=== PATIENT | male | born 1970 | race Caucasian/White ===

== ENCOUNTER 2017-12-05 19:40 | Inpatient (IN) | payer BC ==
[~2017-12-05 19:40] MED LIST: ISOVUE-370 76%-LOCM 1 ML ONE
[2017-12-05 19:55] LABS: #Eosinphils 0.2 thou/uL (0.0-0.7); #Lymphocytes 1.9 thou/uL (1.20-3.40); #Monocytes 0.4 thou/uL (0.11-0.59); #Neutrophils 5.5 thou/uL (1.40-6.50); %Basophils 0.5 % (0.0-1.0); %Eosinophils 2.3 % (0.0-10.0); %Lymphocytes 23.4 % (21.0-51.0); %Monocytes 5.5 % (0.0-10.0); %Neutrophils 68.3 % (42.0-75.0); Hemoglobin 17.1 g/dL (14.0-18.0); Mean Corpuscular HGB CONC 34.7 g/dL (32.0-36.0); Mean Corpuscular Hemoglobin 31.2 pg (27.0-31.0); Mean Platelet Volume 7.4 fL (7.4-10.4); Platelet Count 223 thou/uL (130-400); RBC Distribution Width 11.5 % (11.5-14.5); Red Blood Cell (RBC) Count 5.49 mill/uL (4.70-6.10)
[2017-12-05] MEDS ORDERED: HYDROmorphone 0.5 MG/0.5 ML SYRINGE ONE (19:55)
[2017-12-05] MEDS ORDERED: Ondansetron HCl/PF 4 MG/2 ML Vial ONE (20:01)
[2017-12-05 20:02] LABS: Prothrombin Time 13.7 SEC (12.0-14.7)
[2017-12-05 20:08] LABS: ALT (SGPT) 53 U/L (8-55); AST (SGOT) 47 U/L (5-34); Albumin 4.2 g/dL (3.5-5.0); Alkaline Phosphatase 45 U/L (40-150); Anion Gap 13 mmol/L (10-20); BUN (Urea Nitrogen) 20 mg/dL (8.9-20.6); Bilirubin, Total 0.5 mg/dL (0.2-1.2); Calc. Creatinine Clearance 0 mL/min (70-130); Calcium 9.2 mg/dL (7.8-10.44); Carbon Dioxide 22 mmol/L (22-29); Chloride 107 mmol/L (98-107); Estimated GFR-MDRD 60; Globulin 2.9 g/dL (2.4-3.5); Glucose 119 mg/dL (70-105); Potassium 4.3 mmol/L (3.5-5.1); Protein, Total 7.1 g/dL (6.0-8.3); Sodium 138 mmol/L (136-145)
[2017-12-05 20:11] LABS: PTT 22.6 SEC (22.9-36.1)
[2017-12-05] MEDS ORDERED: Dextrose 50% Abboject 50 ML SYRINGE SLOW IVP PRN (20:20)
[2017-12-05] MEDS ORDERED: hydrALAZINE 20 MG/ML VIAL SLOW IVP PRN (20:20)
[2017-12-05] MEDS ORDERED: Ondansetron ODT 4 MG TAB PO PRN (20:20)
[2017-12-05] MEDS ORDERED: Dextrose 5% in Water 1,000 ML IV PRN (20:20)
[2017-12-05] MEDS ORDERED: HYDROcodone/Acetaminophen 10/325 mg Tablet PO PRN (20:25)
[2017-12-05] MEDS ORDERED: Acetaminophen 500 MG TAB PO SCH (20:30)
[2017-12-05] MEDS ORDERED: Ibuprofen 800 MG TAB PO SCH (20:30)
[2017-12-05] MEDS ORDERED: Rib Fracture Protocol PO SCH (20:30)
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
[2017-12-05] MEDS ORDERED: Adacel (T-DAP) 0.5 ML VIAL ONE (20:44)
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
[2017-12-05] MEDS: HYDROcodone/Acetaminophen 10/325 mg Tablet PO SCH (21:59)
[2017-12-05] MEDS: Cyclobenzaprine 10 MG TAB PO PRN (22:00)
[2017-12-05] MEDS: Famotidine 20 MG TAB PO SCH (22:00)
[2017-12-05] MEDS: Gabapentin 300 MG CAP PO SCH (22:01)
[2017-12-05 22:24] VITALS: BMI 33.9
[2017-12-05] MEDS: Ondansetron HCl/PF 4 MG/2 ML Vial IVP PRN (23:38)
[2017-12-05] MEDS: Ketorolac Tromethamine 30 MG/ML VIAL IVP SCH (23:38)
[2017-12-06] MEDS: HYDROcodone/Acetaminophen 10/325 mg Tablet PO SCH ×4 (01:25→12:54)
[2017-12-06] MEDS: Ketorolac Tromethamine 30 MG/ML VIAL IVP SCH (05:33)
[2017-12-06 05:38] LABS: #Eosinphils 0.2 thou/uL (0.0-0.7); #Lymphocytes 1.7 thou/uL (1.20-3.40); #Monocytes 0.6 thou/uL (0.11-0.59); %Basophils 0.5 % (0.0-1.0); %Eosinophils 2.1 % (0.0-10.0); %Lymphocytes 23.2 % (21.0-51.0); %Monocytes 7.7 % (0.0-10.0); %Neutrophils 66.5 % (42.0-75.0); Hemoglobin 15.5 g/dL (14.0-18.0); Mean Corpuscular HGB CONC 34.9 g/dL (32.0-36.0); Mean Corpuscular Hemoglobin 31.4 pg (27.0-31.0); Mean Platelet Volume 7.2 fL (7.4-10.4); Platelet Count 191 thou/uL (130-400); RBC Distribution Width 11.5 % (11.5-14.5); Red Blood Cell (RBC) Count 4.93 mill/uL (4.70-6.10); White Blood Cell (WBC) Count 7.5 thou/uL (4.8-10.8)
[2017-12-06 05:50] LABS: Anion Gap 10 mmol/L (10-20); BUN (Urea Nitrogen) 17 mg/dL (8.9-20.6); Calc. Creatinine Clearance 180 mL/min (70-130); Calcium 8.6 mg/dL (7.8-10.44); Carbon Dioxide 27 mmol/L (22-29); Chloride 105 mmol/L (98-107); Estimated GFR-MDRD Greater than 90; Glucose 106 mg/dL (70-105); Magnesium 2.3 mg/dL (1.6-2.6); Phosphorus 3.2 mg/dL (2.3-4.7); Potassium 3.5 mmol/L (3.5-5.1); Sodium 138 mmol/L (136-145)
[2017-12-06] MEDS: Ondansetron HCl/PF 4 MG/2 ML Vial IVP PRN ×2 (05:55→16:15)
--- NOTE | 2017-12-06 08:28 | RAD ---
PORTABLE CHEST: Date: 12/06/17 HISTORY: Rib fractures. Shortness of breath. COMPARISON: 12/05/17. FINDINGS: Bilateral rib fractures have been previously described. Lungs appear clear of infiltrate. No pneumoth orax. No significant effusion. Heart is upper normal size with mild vascular engorgement. IMPRESSION: No acute interval change apparent. POS: [facility]
[2017-12-06] MEDS: AMPHETAMINE PO SCH (09:30)
[2017-12-06] MEDS: Gabapentin 300 MG CAP PO SCH ×3 (09:30→20:03)
[2017-12-06] MEDS: Famotidine 20 MG TAB PO SCH ×2 (09:30→20:03)
[2017-12-06] MEDS: DEXTROAMPHETAMINE PO SCH (09:30)
[2017-12-06] MEDS ORDERED: Aspirin/APAP/Caffeine Tab (Excedrin Migraine) PO PRN ×2 (09:34→11:03)
[2017-12-06] MEDS: traMADol HCl 50 MG TAB PO SCH ×3 (10:23→22:04)
[2017-12-06] MEDS ORDERED: Enoxaparin Sodium 30 MG/0.3 ML SYRINGE SC SCH (11:00)
[2017-12-06] MEDS: Ibuprofen 800 MG TAB PO SCH ×2 (12:53→20:03)
[2017-12-06] MEDS: Scopolamine 1.5 mg/72 hour Patch TD SCH (16:35)
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
[2017-12-06] MEDS: Cyclobenzaprine 10 MG TAB PO PRN (17:51)
[2017-12-06] MEDS: Enoxaparin Sodium 30 MG/0.3 ML SYRINGE SC SCH (20:04)
[2017-12-07] MEDS: traMADol HCl 50 MG TAB PO SCH ×2 (03:53→08:28)
[2017-12-07] MEDS: Ibuprofen 800 MG TAB PO SCH ×3 (03:53→20:43)
[2017-12-07] MEDS: Enoxaparin Sodium 30 MG/0.3 ML SYRINGE SC SCH ×2 (08:27→20:44)
[2017-12-07] MEDS: Gabapentin 300 MG CAP PO SCH ×3 (08:28→20:43)
[2017-12-07] MEDS: Famotidine 20 MG TAB PO SCH ×2 (08:28→20:43)
[2017-12-07] MEDS: AMPHETAMINE PO SCH (08:29)
[2017-12-07] MEDS: DEXTROAMPHETAMINE PO SCH (08:29)
--- NOTE | 2017-12-07 08:31 | RAD ---
PORTABLE CHEST: History: Follow up of rib fractures. Comparison: 12-06-17 FINDINGS: Heart size is within normal limits. Right sided rib fractures are again identified. I do not apprecia te any signs of a pneumothorax. There is some atelectatic changes seen in the lung bases. IMPRESSION: Multiple right sided rib fractures. No signs of pneumothorax. POS: [facility]
[2017-12-07] MEDS: Cyclobenzaprine 10 MG TAB PO SCH ×2 (09:50→18:29)
[2017-12-07] MEDS: Docusate 100 MG CAP PO SCH ×2 (09:50→20:43)
[2017-12-07] MEDS: Polyethylene Glycol 3350 17 GM Packet PO SCH (09:50)
[2017-12-07] MEDS: HYDROcodone/Acetaminophen 10/325 mg Tablet PO SCH ×4 (09:51→20:43)
--- NOTE | 2017-12-07 13:11 | PRG-2 ---
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 Th e patient reports he is still in considerable pain due to his rib fractures, particularly with inspir ation. He also notes muscle spasms in his chest wall today. The patient had a headache early this m orning in which he received Excedrin, which helped. The patient has been able to ambulate to the [facility] to shower and around the room. He has not attempted walking the halls and Physical Therapy was unable to work with him yesterday. OBJECTIVE: VITAL SIGNS: Temperature 97.9, pulse 80, respirations 12, 95% on room air, 107/22 blood pressure. GENERAL: Well-nourished, well-developed male, lying in bed. HEENT: Atraumatic, normocephalic. LUNGS: Clear to auscultation bilaterally, no increased work of breathing, painful deep inspiration. 2000 mL on incentive spirometry. HEART: Regular rate and rhythm, no murmur. ABDOMEN: Soft, nontender, nondistended. Bowel sounds present. MUSCULOSKELETAL: Moves all extremities well. Minor abrasion on right knee/thigh. NEUROLOGIC: No focal deficits. ASSESSMENT: 1. Status post blunt force trauma injury from bull. 2. Multiple bilateral rib fractures. 3. Acute traumatic pain, partially controlled. 4. History of attention deficit hyperactivity disorder. PLAN: The patient is encouraged to continue using incentive spirometry and was counseled on the impo rtance of it. The patient is to work with physical therapy today and to ambulate as much as tolerate d. We will work towards better pain control today. Medications have been altered and we will reassess later this afternoon. Bacitracin for right leg ab rasion. Ordered nebs. Dulcolax for constipation ordered. The patient was seen and examined by Dr. Boateng who agrees with the above plan.
[2017-12-07] MEDS: Bacitracin Zinc 1 Packet TOP SCH ×2 (15:13→20:44)
[2017-12-08] MEDS: HYDROcodone/Acetaminophen 10/325 mg Tablet PO SCH ×3 (01:45→09:23)
[2017-12-08] MEDS: Cyclobenzaprine 10 MG TAB PO SCH ×3 (01:45→17:51)
[2017-12-08] MEDS: Ibuprofen 800 MG TAB PO SCH ×3 (05:24→20:11)
[2017-12-08] MEDS: Polyethylene Glycol 3350 17 GM Packet PO SCH (09:22)
[2017-12-08] MEDS: Bacitracin Zinc 1 Packet TOP SCH ×3 (09:22→20:12)
[2017-12-08] MEDS: Gabapentin 300 MG CAP PO SCH ×3 (09:22→20:11)
[2017-12-08] MEDS: Docusate 100 MG CAP PO SCH ×2 (09:23→20:11)
[2017-12-08] MEDS: Famotidine 20 MG TAB PO SCH ×2 (09:23→20:11)
[2017-12-08] MEDS: Enoxaparin Sodium 30 MG/0.3 ML SYRINGE SC SCH ×2 (09:24→20:12)
[2017-12-08] MEDS: DEXTROAMPHETAMINE PO SCH (09:29)
[2017-12-08] MEDS: AMPHETAMINE PO SCH (09:29)
[2017-12-08] MEDS: Bisacodyl 10 MG SUPP PR SCH (10:47)
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
[2017-12-08] MEDS ORDERED: traMADol HCl 50 MG TAB PO PRN (11:53)
[2017-12-08] MEDS: traMADol HCl 50 MG TAB PO SCH ×2 (17:51→22:16)
[2017-12-08] MEDS: HYDROcodone/Acetaminophen 10/325 mg Tablet PO PRN (17:55)
[2017-12-08] MEDS ORDERED: Fleet Enema 133 ML BOT PR SCH (18:30)
[2017-12-08] MEDS: Ondansetron HCl/PF 4 MG/2 ML Vial IVP PRN (22:18)
[2017-12-09] MEDS ORDERED: Calcium Carbonate 500 MG ChewTAB PO PRN (01:50)
[2017-12-09] MEDS: Cyclobenzaprine 10 MG TAB PO SCH ×3 (02:00→18:35)
[2017-12-09] MEDS: traMADol HCl 50 MG TAB PO SCH ×4 (03:28→21:26)
[2017-12-09] MEDS: Ondansetron HCl/PF 4 MG/2 ML Vial IVP PRN ×2 (04:01→10:28)
[2017-12-09] MEDS: Ibuprofen 800 MG TAB PO SCH (04:12)
[2017-12-09] MEDS ORDERED: Lidocaine 2% Jelly 5 ML TUBE TOP SCH (05:15)
[2017-12-09] MEDS ORDERED: Benzocaine 20% Spray 60 ML CAN FS SCH (05:15)
[2017-12-09] MEDS ORDERED: Ketorolac Tromethamine 30 MG/ML VIAL ONE (05:59)
[2017-12-09] MEDS ORDERED: Ketorolac Tromethamine 30 MG/ML VIAL IVP SCH (06:15)
[2017-12-09] MEDS: Sodium Chloride 0.9% 1,000 ML IV SCH ×3 (06:51→18:36)
[2017-12-09 07:26] LABS: #Eosinphils 0.1 thou/uL (0.0-0.7); #Lymphocytes 0.8 thou/uL (1.20-3.40); #Monocytes 0.6 thou/uL (0.11-0.59); %Basophils 0.5 % (0.0-1.0); %Eosinophils 1.2 % (0.0-10.0); %Lymphocytes 10.5 % (21.0-51.0); %Neutrophils 79.9 % (42.0-75.0); Hemoglobin 17.9 g/dL (14.0-18.0); Mean Corpuscular HGB CONC 35.3 g/dL (32.0-36.0); Mean Corpuscular Hemoglobin 31.8 pg (27.0-31.0); Mean Corpuscular Volume 90.1 fL (78.0-98.0); Mean Platelet Volume 7.1 fL (7.4-10.4); Platelet Count 214 thou/uL (130-400); RBC Distribution Width 11.7 % (11.5-14.5); Red Blood Cell (RBC) Count 5.62 mill/uL (4.70-6.10); White Blood Cell (WBC) Count 7.5 thou/uL (4.8-10.8)
[2017-12-09 07:39] LABS: Anion Gap 13 mmol/L (10-20); BUN (Urea Nitrogen) 12 mg/dL (8.9-20.6); Calc. Creatinine Clearance 163 mL/min (70-130); Calcium 9.1 mg/dL (7.8-10.44); Carbon Dioxide 26 mmol/L (22-29); Chloride 98 mmol/L (98-107); Estimated GFR-MDRD 84; Glucose 130 mg/dL (70-105); Magnesium 1.8 mg/dL (1.6-2.6); Phosphorus 3.3 mg/dL (2.3-4.7); Potassium 4.6 mmol/L (3.5-5.1); Sodium 132 mmol/L (136-145)
--- NOTE | 2017-12-09 09:36 | RAD ---
ABDOMINAL SERIES WITH UPRIGHT CHEST AND 2 VIEWS ABDOMEN: INDICATION: Abdominal distention. Abdominal pain. FINDINGS: On upright chest, an NG tube has been placed with the tip overlying the left upper quadrant. Lungs s how vascular and interstitial congestion. Mild cardiomegaly. Views of the abdomen reveal gas-filled dilated loops of small bowel which do exhibit differential air fluid levels on the upright film. There is also some gaseous distention of colon with a large amoun t of stool in the right colon. There is also stool in the left colon. No significant stool to the level of the rectum. IMPRESSION: Dilated gas-filled loops of small bowel. Some gaseous distention of colon with stool in the colon as described. Differential air fluid levels on the upright are suggestive of small bowel obstruction. POS: [facility]
[2017-12-09] MEDS: Pantoprazole 40 MG VIAL IVP SCH (09:46)
[2017-12-09] MEDS: Neostigmine 0.5 MG in Syringe 0 ML SC SCH ×3 (09:46→21:20)
[2017-12-09] MEDS: Bisacodyl 10 MG SUPP PR SCH (09:46)
[2017-12-09] MEDS: Docusate 100 MG CAP PO SCH ×2 (09:55→21:27)
[2017-12-09] MEDS: Bacitracin Zinc 1 Packet TOP SCH ×3 (09:55→21:28)
[2017-12-09] MEDS: AMPHETAMINE PO SCH (09:56)
[2017-12-09] MEDS: DEXTROAMPHETAMINE PO SCH (09:56)
[2017-12-09] MEDS: Polyethylene Glycol 3350 17 GM Packet PO SCH (09:56)
[2017-12-09] MEDS: Gabapentin 300 MG CAP PO SCH ×3 (09:56→21:26)
[2017-12-09] MEDS: Enoxaparin Sodium 30 MG/0.3 ML SYRINGE SC SCH ×2 (09:58→21:20)
[2017-12-09] MEDS ORDERED: Rib Fracture Protocol IV SCH (10:15)
[2017-12-09] MEDS: Acetaminophen 650 MG Suppository PR SCH ×2 (11:17→18:46)
[2017-12-09] MEDS: Ketorolac Tromethamine 30 MG/ML VIAL IVP SCH ×2 (11:17→18:31)
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
[2017-12-09] MEDS: HYDROcodone/Acetaminophen 10/325 mg Tablet PO PRN (15:26)
[2017-12-09] MEDS: Scopolamine 1.5 mg/72 hour Patch TD SCH (15:31)
[2017-12-09] MEDS: BIOTENE MOUTH SPRAY 44.3 ML MM SCH ×2 (15:31→21:20)
[2017-12-10] MEDS: Ketorolac Tromethamine 30 MG/ML VIAL IVP SCH ×5 (00:17→21:18)
[2017-12-10] MEDS: Acetaminophen 650 MG Suppository PR SCH ×3 (00:17→15:04)
[2017-12-10] MEDS: Cyclobenzaprine 10 MG TAB PO SCH ×3 (00:17→18:21)
[2017-12-10] MEDS: Neostigmine 0.5 MG in Syringe 0 ML SC SCH ×4 (03:07→21:23)
[2017-12-10] MEDS: traMADol HCl 50 MG TAB PO SCH ×4 (03:07→21:23)
[2017-12-10] MEDS: Sodium Chloride 0.9% 1,000 ML IV SCH ×3 (05:47→22:58)
[2017-12-10 06:24] LABS: #Eosinphils 0.2 thou/uL (0.0-0.7); #Lymphocytes 1.2 thou/uL (1.20-3.40); #Monocytes 0.6 thou/uL (0.11-0.59); #Neutrophils 3.1 thou/uL (1.40-6.50); %Basophils 0.5 % (0.0-1.0); %Eosinophils 3.5 % (0.0-10.0); %Lymphocytes 23.5 % (21.0-51.0); %Neutrophils 60.5 % (42.0-75.0); Hemoglobin 15.1 g/dL (14.0-18.0); Mean Corpuscular HGB CONC 34.1 g/dL (32.0-36.0); Mean Corpuscular Hemoglobin 30.9 pg (27.0-31.0); Mean Corpuscular Volume 90.6 fL (78.0-98.0); Mean Platelet Volume 6.8 fL (7.4-10.4); Platelet Count 217 thou/uL (130-400); RBC Distribution Width 11.6 % (11.5-14.5); Red Blood Cell (RBC) Count 4.89 mill/uL (4.70-6.10); White Blood Cell (WBC) Count 5.2 thou/uL (4.8-10.8)
[2017-12-10 06:39] LABS: Anion Gap 12 mmol/L (10-20); BUN (Urea Nitrogen) 20 mg/dL (8.9-20.6); Calc. Creatinine Clearance 138 mL/min (70-130); Calcium 8.4 mg/dL (7.8-10.44); Carbon Dioxide 29 mmol/L (22-29); Chloride 100 mmol/L (98-107); Estimated GFR-MDRD 69; Glucose 92 mg/dL (70-105); Phosphorus 3.1 mg/dL (2.3-4.7); Potassium 3.7 mmol/L (3.5-5.1); Sodium 137 mmol/L (136-145)
[2017-12-10] MEDS: Polyethylene Glycol 3350 17 GM Packet PO SCH (08:50)
[2017-12-10] MEDS: Pantoprazole 40 MG VIAL IVP SCH (08:50)
[2017-12-10] MEDS: HYDROcodone/Acetaminophen 10/325 mg Tablet PO PRN ×2 (08:50→18:24)
[2017-12-10] MEDS: Enoxaparin Sodium 30 MG/0.3 ML SYRINGE SC SCH ×2 (08:50→21:24)
[2017-12-10] MEDS: Bisacodyl 10 MG SUPP PR SCH (08:51)
[2017-12-10] MEDS: Gabapentin 300 MG CAP PO SCH ×3 (08:51→21:22)
[2017-12-10] MEDS: Docusate 100 MG CAP PO SCH ×2 (08:51→21:22)
[2017-12-10] MEDS: Bacitracin Zinc 1 Packet TOP SCH ×3 (08:52→21:23)
[2017-12-10] MEDS: BIOTENE MOUTH SPRAY 44.3 ML MM SCH ×3 (10:22→21:24)
[2017-12-10] MEDS: AMPHETAMINE PO SCH (12:07)
[2017-12-10] MEDS: DEXTROAMPHETAMINE PO SCH (12:07)
[2017-12-10] MEDS ORDERED: Acetaminophen 325 MG TAB PO PRN (17:40)
[2017-12-10] MEDS: Acetaminophen 325 MG TAB PO SCH ×2 (18:27→23:28)
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
[2017-12-11] MEDS: HYDROcodone/Acetaminophen 10/325 mg Tablet PO PRN ×3 (01:22→14:44)
[2017-12-11] MEDS: Cyclobenzaprine 10 MG TAB PO SCH ×3 (01:24→16:59)
[2017-12-11] MEDS: Neostigmine 0.5 MG in Syringe 0 ML SC SCH ×3 (01:36→15:28)
[2017-12-11] MEDS: Ketorolac Tromethamine 30 MG/ML VIAL IVP SCH ×3 (03:28→15:29)
[2017-12-11] MEDS: traMADol HCl 50 MG TAB PO SCH ×3 (03:29→16:59)
[2017-12-11] MEDS: Acetaminophen 325 MG TAB PO SCH ×2 (06:51→12:09)
[2017-12-11] MEDS: Polyethylene Glycol 3350 17 GM Packet PO SCH (09:06)
[2017-12-11] MEDS: Gabapentin 300 MG CAP PO SCH ×2 (09:06→15:28)
[2017-12-11] MEDS: Enoxaparin Sodium 30 MG/0.3 ML SYRINGE SC SCH (09:06)
[2017-12-11] MEDS: Bacitracin Zinc 1 Packet TOP SCH ×2 (09:06→15:28)
[2017-12-11] MEDS: Docusate 100 MG CAP PO SCH (09:07)
[2017-12-11] MEDS: Bisacodyl 10 MG SUPP PR SCH (09:07)
[2017-12-11] MEDS: Pantoprazole 40 MG VIAL IVP SCH (09:08)
[2017-12-11] MEDS: BIOTENE MOUTH SPRAY 44.3 ML MM SCH ×2 (11:23→15:29)
[2017-12-11] MEDS: DEXTROAMPHETAMINE PO SCH (11:23)
[2017-12-11] MEDS: Sodium Chloride 0.9% 1,000 ML IV SCH ×2 (11:23→17:36)
[2017-12-11] MEDS: AMPHETAMINE PO SCH (11:23)
[2017-12-11 12:20] VITALS: BP 116/77; TEMP 98.3
[2017-12-14] MEDS ORDERED: Ibuprofen 800 MG TAB PO SCH (14:00)
== END 2017-12-11 18:23 | disposition home or self-care (01) | DRG 184 ==
LOC: ERS 19:40 → SURG A 20:20
PROVIDERS: ADMIT Surgery; ATTEND Surgery
DX: S22.43XA Multiple fractures of ribs, bilateral, initial encounter for closed fracture (principal); K56.0 Paralytic ileus; G89.11 Acute pain due to trauma; F90.9 Attention-deficit hyperactivity disorder, unspecified type; Z79.899 Other long term (current) drug therapy; W55.22XA Struck by cow, initial encounter
CPT/HCPCS: 36415; 70450; 71045; 71260; 72125; 72170; 74022; 74177; 80048; 80053; 82150; 83735; 84100; 85025; 85610; 85730; 86850; 86900; 86901; 90471; 90715; 93005; 94640; 94760; 96361; 96374; 96375; C9113; G0390; G8978-GP-CL; G8979-GP-CJ; G8987-GO-CK; G8988-GO-CI; J1170; J1650; J1885; J2270; J2405; J2710; J7620